=== PATIENT | female | born 1970 | race Caucasian/White ===

== ENCOUNTER 2022-08-29 11:22 | Emergency (ER) | payer SELFPAY ==
[~2022-08-29] VITALS: Ht 157.5 cm; Wt 79.0 kg
[2022-08-29 11:32] VITALS: BP 170/90
== END 2022-08-29 19:38 | disposition left against medical advice (07) ==
LOC: ER 11:22
DX: Z53.21 Procedure and treatment not carried out due to patient leaving prior to being seen by health care provider (principal)